=== PATIENT | male | born 1995 | race Caucasian/White ===

== ENCOUNTER 2020-07-03 09:03 | Emergency (ER) | payer MEDICAID ==
[~2020-07-03] VITALS: Ht 185.4 cm; Wt 104.7 kg
--- NOTE | 2020-07-03 09:55 | NUR ---
PT AMBULATED TO ROOM FROM TRIAGE.
[2020-07-03] MEDS ORDERED: FAMOTIDINE 20 MG/2 ML IV ONE (10:30)
[2020-07-03] MEDS ORDERED: ONDANSETRON 2MG/ML, 2ML IVPush ONE (10:30)
[2020-07-03] MEDS ORDERED: SODIUM CHLORIDE 0.9% 1,000 ML IV ONE (10:30)
[2020-07-03] MEDS ORDERED: SODIUM CHLORIDE FLUSH 10ML SYR IVF ONE (10:30)
[2020-07-03] MEDS ORDERED: SODIUM CHLORIDE 0.9% 1,000ML IVBOLUS ONE (10:30)
[2020-07-03] MEDS ORDERED: MORPHINE SULFATE 4 MG/ML, 1ML IVPush PRN (10:30)
[2020-07-03] MEDS ORDERED: ONDANSETRON 2MG/ML, 2ML ONE (10:37)
[2020-07-03] MEDS ORDERED: FAMOTIDINE 20 MG/2 ML ONE (10:37)
[2020-07-03] MEDS ORDERED: MORPHINE SULFATE 4 MG/ML, 1ML ONE (10:37)
[2020-07-03 10:56] LABS: BASOPHILS % (AUTO) 1 % (0-1); EOSINOPHILS % (AUTO) 2 % (1-7); LYMPHOCYTES % (AUTO) 31 % (22-44); MEAN CORPUSCULAR HEMOGLOBIN 31.4 pg (27.5-34.5); MEAN CORPUSCULAR HGB CONC 33.6 g/dL (33.2-36.2); MEAN PLATELET VOLUME 8.4 fL (7.4-10.4); MONOCYTES % (AUTO) 6 % (2-9); NEUTROPHILS % (AUTO) 60 % (42-75); PLATELET COUNT 251 x10^3/uL (130-400); RED BLOOD COUNT 4.84 x10^6/uL (4.38-5.82); RED CELL DISTRIBUTION WIDTH 13.4 % (9.4-14.8)
[2020-07-03 10:59] LABS: MD NO
[2020-07-03 11:07] LABS: ALANINE AMINOTRANSFERASE 20 U/L (12-78); ANION GAP 4 mmol/L (5-15); CALCIUM 8.7 mg/dL (8.5-10.1); CHLORIDE 114 mmol/L (98-107); CREATININE 0.92 mg/dL (0.7-1.3)
[2020-07-03 11:09] LABS: ALKALINE PHOSPHATASE 66 U/L (45-117); BILIRUBIN,TOTAL 0.7 mg/dL (0.2-1.0); TOTAL PROTEIN 7.1 g/dL (6.4-8.2)
[2020-07-03 12:30] LABS: MICROSCOPIC INDICATED
--- NOTE | 2020-07-03 13:54 | NUR ---
Rosa M RN: discharged for primary RN
[2020-07-03 13:55] VITALS: BP 121/60
== END 2020-07-03 14:00 | disposition home or self-care (01) ==
LOC: ED 09:30
DX: R10.13 Epigastric pain (principal); R11.2 Nausea with vomiting, unspecified
CPT/HCPCS: 36415; 80053; 81001; 83690; 85025; 93005; 96361; 96374; 96375; 99284; J2270; J2405; J7030

== ENCOUNTER 2020-09-16 12:35 | Emergency (ER) | payer MEDICAID ==
[~2020-09-16] VITALS: Ht 185.4 cm; Wt 101.9 kg
--- NOTE | 2020-09-16 13:07 | NUR ---
PT REPORTS ONGOING ABD PAIN X SEVERAL MONTHS, STATES SEEN MULTIPLE TIMES FOR SIMILAR COMPLAINTS W/O DIAGNOSIS. PAIN IN RIGHT AND LEFT UPPER QUADRANTS, RADIATES TO EPIGASTRIM, REPORTS NAUSEA AND DECREASED APPETITE, EMESIS DAILY OF BILE, DENIES DIARRHEA OR FEVER. MILD TENDERNESS TO LEFT UPPER QUADRANT. DAILY ETOH AND SMOKING, MARIJUANA USE. VITALS STABLE ON MONITOR, DENIES CHEST PAIN OR SOB.
[2020-09-16] MEDS ORDERED: ONDANSETRON ODT 4 MG PO ONE (14:00)
[2020-09-16] MEDS ORDERED: ONDANSETRON ODT 4 MG ONE (14:06)
--- NOTE | 2020-09-16 14:30 | NUR ---
Note heladio in EDM - 09/16/20 at 1449 by JEFRY [place] [facility] [place] toler[place], pain is tolerable to left knee. significant swelling noted, negative deformity. ice provided. at bedside for luis f.
--- NOTE | 2020-09-16 14:30 | NUR ---
US AT BEDSIDE, VITALS REMAIN STABLE. ZOFRAN TO BE GIVEN WHEN IMAGING COMPLETE, PT STATES NAUSEA IS TOLERABLE AND MILD AT THIS TIME.
[2020-09-16 14:55] LABS: BASOPHILS % (AUTO) 2 % (0-1); EOSINOPHILS % (AUTO) 2 % (1-7); LYMPHOCYTES % (AUTO) 23 % (22-44); MEAN CORPUSCULAR HEMOGLOBIN 31.5 pg (27.5-34.5); MEAN CORPUSCULAR HGB CONC 33.8 g/dL (33.2-36.2); MEAN PLATELET VOLUME 8.4 fL (7.4-10.4); MONOCYTES % (AUTO) 7 % (2-9); NEUTROPHILS % (AUTO) 66 % (42-75); PLATELET COUNT 296 x10^3/uL (130-400); RED BLOOD COUNT 5.05 x10^6/uL (4.38-5.82); RED CELL DISTRIBUTION WIDTH 13.4 % (9.4-14.8)
[2020-09-16 15:01] LABS: MD NO
[2020-09-16 15:05] LABS: ALANINE AMINOTRANSFERASE 24 U/L (12-78); ALBUMIN 4.1 g/dL (3.4-5.0); ANION GAP 6 mmol/L (5-15); CHLORIDE 111 mmol/L (98-107); CREATININE 0.92 mg/dL (0.7-1.3)
[2020-09-16 15:07] LABS: ALKALINE PHOSPHATASE 73 U/L (45-117); BILIRUBIN,TOTAL 1.3 mg/dL (0.2-1.0); TOTAL PROTEIN 7.4 g/dL (6.4-8.2)
[2020-09-16 16:08] VITALS: BP 135/70
== END 2020-09-16 16:11 | disposition home or self-care (01) ==
LOC: ED 14:00
DX: K25.3 Acute gastric ulcer without hemorrhage or perforation (principal); R10.11 Right upper quadrant pain; R94.31 Abnormal electrocardiogram [ECG] [EKG]
CPT/HCPCS: 36415; 71045; 76700; 80053; 83690; 85025; 93005; 99285; Q0162

== ENCOUNTER 2021-01-17 14:21 | Emergency (ER) | payer MEDICAID ==
[~2021-01-17] VITALS: Ht 180.3 cm; Wt 97.4 kg
[2021-01-17 15:31] VITALS: BP 123/73
== END 2021-01-17 17:52 | disposition home or self-care (01) ==
LOC: ED 17:06
DX: S90.111A Contusion of right great toe without damage to nail, initial encounter (principal); S90.121A Contusion of right lesser toe(s) without damage to nail, initial encounter; F17.210 Nicotine dependence, cigarettes, uncomplicated; Z87.11 Personal history of peptic ulcer disease; W18.30XA Fall on same level, unspecified, initial encounter; Y93.89 Activity, other specified; Y92.69 Other specified industrial and construction area as the place of occurrence of the external cause; Y99.0 Civilian activity done for income or pay
CPT/HCPCS: 99283; 99406